=== PATIENT | female | born 1995 | race Hispanic/Latino ===

== ENCOUNTER 2016-06-17 10:49 | Emergency (ER) | payer OTHER ==
[~2016-06-17] VITALS: Ht 177.8 cm; Wt 68.0 kg
--- NOTE | 2016-06-17 11:59 | REP ---
Acute abdominal series including PA chest and supine upright abdomen: There are no comparisons. PA chest: The lung mendoza are clear. Cardiac size is normal. The hector, mediastinum, bony thorax unremarkable. There is no free subdiaphragmatic air. There is a tiny 4 mm right upper lobe lung nodule of uncertain significance in the absence of prior studies to document stability. Therefore, chest CT might be considered to assist in differentiating vascular artifact from true lung nodule. Impression: 4 mm right upper lobe lung nodule as described. Otherwise, negative PA chest. There are no comparison studies to document stability, consider chest CT follow-up. Abdomen, supine and upright views: The bowel gas pattern is normal. There are no unusual calcifications. There is mild lumbar scoliosis convex right. 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 The skeletal structures and soft tissues are otherwise unremarkable. Signed by Jass Barrientos MD 06/17/2016 11:51 A
[2016-06-17 13:14] VITALS: BP 119/58
--- NOTE | 2016-06-17 22:30 | ED PDOC ---
Post-Departure Follow-Up certified letter sent to pt re formal report of abdl series. needs fu Rachael Ozuna MD Jun 17, 2016 22:29
== END 2016-06-17 13:20 | disposition home or self-care (01) ==
LOC: EDBD 10:49 → M ED 11:35
DX: K59.00 Constipation, unspecified (principal)

== ENCOUNTER 2017-01-08 14:28 | Emergency (ER) | payer OTHER ==
[~2017-01-08] VITALS: Ht 177.8 cm; Wt 68.2 kg
[2017-01-08 14:35] VITALS: BP 129/67
[2017-01-08] MEDS ORDERED: NS 1,000 ML IV ONE (14:45)
[2017-01-08 15:10] LABS: BASO % 0.2 % (0.0-1.0); IMMATURE GRANULOCYTE % 0.3 % (0-0); LYMPH # 0.8 10^3/uL (1.5-6.5); LYMPH % 6.3 % (24.0-44.0); MEAN CORPUSCULAR HEMOGLOBIN 30.3 pg (27.0-33.0); MEAN CORPUSCULAR HGB CONC 34.1 g/dl (32.0-36.5); MEAN CORPUSCULAR VOLUME 88.8 fl (80.0-96.0); MONO # 0.4 10^3/uL (0.0-0.8); NEUTROPHILS # 11.3 10^3/uL (1.8-7.7); NEUTROPHILS % 90.2 % (36.0-66.0); PLATELET COUNT, AUTOMATED 201 10^3/uL (150-450); RED CELL DISTRIBUTION WIDTH 11.9 % (11.5-14.5); WHITE BLOOD COUNT 12.5 10^3/uL (4.0-10.0)
[2017-01-08 15:32] LABS: CONTROL LINE HCG INT CTR LINE PRESENT
[2017-01-08 15:47] LABS: ALBUMIN 4.3 GM/DL (3.2-5.2); ALBUMIN/GLOBULIN RATIO 1.26 (1.00-1.93); ALKALINE PHOSPHATASE 67 U/L (45-117); ALT/SGPT 15 U/L (12-78); ANION GAP 6 MEQ/L (8-16); AST/SGOT 11 U/L (7-37); BILIRUBIN,DIRECT 0.2 MG/DL (0.0-0.2); BLOOD UREA NITROGEN 13 MG/DL (7-18); CALCIUM LEVEL 9.3 MG/DL (8.5-10.1); CARBON DIOXIDE LEVEL 28 MEQ/L (21-32); CHLORIDE LEVEL 109 MEQ/L (98-107); CREATININE FOR GFR 0.89 MG/DL (0.55-1.02); GLOMERULAR FILTRATION RATE > 60.0 (>60); GLUCOSE, FASTING 98 MG/DL (70-105); POTASSIUM SERUM 3.7 MEQ/L (3.5-5.1); SODIUM LEVEL 143 MEQ/L (136-145); TOTAL PROTEIN 7.7 GM/DL (6.4-8.2)
== END 2017-01-08 16:24 | disposition left against medical advice (07) ==
LOC: M ED 14:28 → EDBD 14:28 → M ED 16:24
DX: R53.1 Weakness (principal)

== ENCOUNTER 2017-08-09 15:14 | Emergency (ER) | payer OTHER ==
[2017-08-09 16:06] LABS: BASO % 0.2 % (0.0-1.0); EOS # 0.1 10^3/uL (0.0-0.50); EOS % 0.8 % (0.0-3.0); HEMATOCRIT 34.6 % (36.0-47.0); HEMOGLOBIN 12.3 g/dl (12.0-15.5); IMMATURE GRANULOCYTE % 0.4 % (0-3.0); LYMPH # 1.3 10^3/uL (1.5-6.5); LYMPH % 13.2 % (24.0-44.0); MEAN CORPUSCULAR HEMOGLOBIN 31.6 pg (27.0-33.0); MEAN CORPUSCULAR HGB CONC 35.5 g/dl (32.0-36.5); MEAN CORPUSCULAR VOLUME 88.9 fl (80.0-96.0); MONO # 0.4 10^3/uL (0.0-0.8); MONO % 4.6 % (0.0-5.0); NEUTROPHILS # 7.8 10^3/uL (1.8-7.7); NEUTROPHILS % 80.8 % (36.0-66.0); PLATELET COUNT, AUTOMATED 186 10^3/uL (150-450); RED BLOOD COUNT 3.89 10^6/uL (4.00-5.40); RED CELL DISTRIBUTION WIDTH 11.7 % (11.5-14.5); WHITE BLOOD COUNT 9.6 10^3/uL (4.0-10.0)
[2017-08-09 16:30] LABS: CONTROL LINE HCG INT CTR LINE PRESENT; HCG, SERUM QUALITATIVE NEGATIVE (NEGATIVE)
[2017-08-09 16:58] LABS: ALBUMIN 3.5 GM/DL (3.2-5.2); ALBUMIN/GLOBULIN RATIO 1.21 (1.00-1.93); ALKALINE PHOSPHATASE 47 U/L (45-117); ALT/SGPT 12 U/L (12-78); ANION GAP 7 MEQ/L (8-16); AST/SGOT 9 U/L (7-37); BILIRUBIN,DIRECT 0.2 MG/DL (0.0-0.2); BLOOD UREA NITROGEN 9 MG/DL (7-18); CALCIUM LEVEL 8.3 MG/DL (8.5-10.1); CARBON DIOXIDE LEVEL 25 MEQ/L (21-32); CHLORIDE LEVEL 109 MEQ/L (98-107); GLOMERULAR FILTRATION RATE > 60.0 (>60); GLUCOSE, FASTING 89 MG/DL (70-100); LIPASE 144 U/L (73-393); POTASSIUM SERUM 4.1 MEQ/L (3.5-5.1); SODIUM LEVEL 141 MEQ/L (136-145); TOTAL PROTEIN 6.4 GM/DL (6.4-8.2)
[2017-08-09] MEDS: PANTOPRAZOLE 40MG INJ (PROTONIX) (C9113) IV (17:14)
[2017-08-09] MEDS: NS 1,000 ML IV (17:14)
[2017-08-09] MEDS: ONDANSETRON 4MG/2ML VIAL (J2405) IV (17:14)
== END 2017-08-09 17:49 | disposition home or self-care (01) ==
LOC: M ED 15:14
DX: R10.9 Unspecified abdominal pain (principal); R11.2 Nausea with vomiting, unspecified; R19.7 Diarrhea, unspecified
CPT/HCPCS: C9113

== ENCOUNTER 2017-08-15 10:43 | Emergency (ER) | payer OTHER ==
[2017-08-15 11:32] LABS: BASO % 0.3 % (0.0-1.0); EOS % 0.5 % (0.0-3.0); HEMATOCRIT 36.2 % (36.0-47.0); HEMOGLOBIN 12.8 g/dl (12.0-15.5); IMMATURE GRANULOCYTE % 0.3 % (0-3.0); LYMPH # 1.5 10^3/uL (1.5-6.5); LYMPH % 17.3 % (24.0-44.0); MEAN CORPUSCULAR HEMOGLOBIN 31.5 pg (27.0-33.0); MEAN CORPUSCULAR HGB CONC 35.4 g/dl (32.0-36.5); MEAN CORPUSCULAR VOLUME 89.2 fl (80.0-96.0); MONO # 0.5 10^3/uL (0.0-0.8); MONO % 5.7 % (0.0-5.0); NEUTROPHILS # 6.7 10^3/uL (1.8-7.7); NEUTROPHILS % 75.9 % (36.0-66.0); PLATELET COUNT, AUTOMATED 201 10^3/uL (150-450); RED BLOOD COUNT 4.06 10^6/uL (4.00-5.40); RED CELL DISTRIBUTION WIDTH 11.9 % (11.5-14.5); WHITE BLOOD COUNT 8.8 10^3/uL (4.0-10.0)
[2017-08-15 11:38] LABS: KETONE, URINE AUTO RFX NEGATIVE (NEGATIVE); LEUKOCYTE ESTERASE UR AUTO RFX NEGATIVE (NEGATIVE); NITRITE, URINE AUTO RFX NEGATIVE (NEGATIVE); RBC, URINE AUTO RFX 1 /HPF (0-3); SPECIFIC GRAVITY UR AUTO RFX 1.003 (1.002-1.035); SQUAM EPITHELIAL CELL UR AURFX 1 /HPF (0-6); WBC, URINE AUTO RFX 0 /HPF (0-3)
[2017-08-15 12:22] LABS: ANION GAP 9 MEQ/L (8-16); BLOOD UREA NITROGEN 11 MG/DL (7-18); CALCIUM LEVEL 8.8 MG/DL (8.5-10.1); CARBON DIOXIDE LEVEL 25 MEQ/L (21-32); CHLORIDE LEVEL 107 MEQ/L (98-107); CREATININE FOR GFR 0.74 MG/DL (0.55-1.30); GLOMERULAR FILTRATION RATE > 60.0 (>60); GLUCOSE, FASTING 65 MG/DL (70-100); HCG, SERUM QUANTITATIVE 58753 MIU/ML; POTASSIUM SERUM 4.1 MEQ/L (3.5-5.1); SODIUM LEVEL 141 MEQ/L (136-145)
== END 2017-08-15 15:04 | disposition home or self-care (01) ==
LOC: M ED 10:43
DX: O20.8 Other hemorrhage in early pregnancy (principal); Z3A.01 Less than 8 weeks gestation of pregnancy; Z79.899 Other long term (current) drug therapy
CPT/HCPCS: 76801

== ENCOUNTER 2017-12-09 15:21 | Emergency (ER) | payer OTHER ==
[2017-12-09 16:31] LABS: INR 0.99; PROTHROMBIN TIME 13.2 SECONDS (12.1-14.4)
[2017-12-09 16:32] LABS: PARTIAL THROMBOPLASTIN TIME 24.6 SECONDS (25.4-37.6)
[2017-12-09 16:50] LABS: ALBUMIN 2.9 GM/DL (3.2-5.2); ALBUMIN/GLOBULIN RATIO 0.81 (1.00-1.93); ALKALINE PHOSPHATASE 61 U/L (45-117); ALT/SGPT 24 U/L (12-78); ANION GAP 8 MEQ/L (8-16); AST/SGOT 14 U/L (7-37); BILIRUBIN,DIRECT < 0.1 MG/DL (0.0-0.2); BILIRUBIN,TOTAL 0.4 MG/DL (0.2-1.0); BLOOD UREA NITROGEN 9 MG/DL (7-18); CALCIUM LEVEL 8.2 MG/DL (8.5-10.1); CARBON DIOXIDE LEVEL 24 MEQ/L (21-32); CHLORIDE LEVEL 109 MEQ/L (98-107); CK-MB VALUE MASS < 1.0 NG/ML (<3.6); CPK CREATINE PHOSPHOKINASE 47 U/L (26-192); CREATININE FOR GFR 0.62 MG/DL (0.55-1.30); FREE T4 0.82 NG/DL (0.76-1.46); GLOMERULAR FILTRATION RATE > 60.0 (>60); GLUCOSE, FASTING 80 MG/DL (70-100); LIPASE 149 U/L (73-393); MB/CK RELATIVE INDEX 2.13 (< OR =4); SODIUM LEVEL 141 MEQ/L (136-145); THYROID STIMULATING HORMONE 0.939 uIU/ML (0.358-3.740); TOTAL PROTEIN 6.5 GM/DL (6.4-8.2); TROPONIN I < 0.02 NG/ML (< 0.10)
[2017-12-09] MEDS ORDERED: ISOVUE-370 76% 100ML VIAL (Q9967) As Ordered (17:26)
[2017-12-09 17:36] LABS: BASO % 0.3 % (0.0-1.0); EOS # 0.1 10^3/uL (0.0-0.50); EOS % 1.1 % (0.0-3.0); HEMATOCRIT 34.8 % (36.0-47.0); HEMOGLOBIN 11.9 g/dl (12.0-15.5); IMMATURE GRANULOCYTE % 1.5 % (0-3.0); LYMPH # 1.3 10^3/uL (1.5-6.5); LYMPH % 14.2 % (24.0-44.0); MEAN CORPUSCULAR HEMOGLOBIN 31.9 pg (27.0-33.0); MEAN CORPUSCULAR HGB CONC 34.2 g/dl (32.0-36.5); MEAN CORPUSCULAR VOLUME 93.3 fl (80.0-96.0); MONO # 0.7 10^3/uL (0.0-0.8); MONO % 7.8 % (0.0-5.0); NEUTROPHILS % 75.1 % (36.0-66.0); PLATELET COUNT, AUTOMATED 190 10^3/uL (150-450); RED BLOOD COUNT 3.73 10^6/uL (4.00-5.40); RED CELL DISTRIBUTION WIDTH 12.3 % (11.5-14.5); WHITE BLOOD COUNT 9.3 10^3/uL (4.0-10.0)
== END 2017-12-09 19:04 | disposition home or self-care (01) ==
LOC: M ED 15:21
DX: O99.89 Other specified diseases and conditions complicating pregnancy, childbirth and the puerperium (principal); R07.9 Chest pain, unspecified; R00.2 Palpitations; Z3A.24 24 weeks gestation of pregnancy
CPT/HCPCS: Q9967

== ENCOUNTER 2017-12-31 15:14 | Outpatient (CLI) | payer OTHER ==
[2017-12-31 17:30] LABS: HEMATOCRIT 32.6 % (36.0-47.0); HEMOGLOBIN 11.1 g/dl (12.0-15.5); MEAN CORPUSCULAR HEMOGLOBIN 31.5 pg (27.0-33.0); MEAN CORPUSCULAR VOLUME 92.6 fl (80.0-96.0); PLATELET COUNT, AUTOMATED 190 10^3/uL (150-450); RED BLOOD COUNT 3.52 10^6/uL (4.00-5.40); RED CELL DISTRIBUTION WIDTH 12.5 % (11.5-14.5); WHITE BLOOD COUNT 12.4 10^3/uL (4.0-10.0)
[2017-12-31 17:44] LABS: TOTAL PROTEIN,RANDOM URINE 8.1 MG/DL (0.0-12.0)
[2017-12-31 17:55] LABS: ALT/SGPT 25 U/L (12-78); AST/SGOT 19 U/L (7-37); BILIRUBIN,TOTAL 0.3 MG/DL (0.2-1.0); CREATININE FOR GFR 0.71 MG/DL (0.55-1.30); GLOMERULAR FILTRATION RATE > 60.0 (>60); LDH LACTATE DEHYDROGENASE 139 U/L (84-246); URIC ACID 2.8 MG/DL (2.6-6.0)
== END 2017-12-31 18:00 | disposition home or self-care (01) ==
LOC: M LDO 15:14
DX: O99.89 Other specified diseases and conditions complicating pregnancy, childbirth and the puerperium (principal); R51 Headache; R03.0 Elevated blood-pressure reading, without diagnosis of hypertension; Z3A.27 27 weeks gestation of pregnancy
CPT/HCPCS: 59025

== ENCOUNTER 2018-01-08 22:28 | Emergency (ER) | payer OTHER ==
[2018-01-08 23:42] LABS: HEMATOCRIT 28.8 % (36.0-47.0); HEMOGLOBIN 9.8 g/dl (12.0-15.5); MEAN CORPUSCULAR VOLUME 91.1 fl (80.0-96.0); PLATELET COUNT, AUTOMATED 169 10^3/uL (150-450); RED BLOOD COUNT 3.16 10^6/uL (4.00-5.40); RED CELL DISTRIBUTION WIDTH 12.3 % (11.5-14.5); WHITE BLOOD COUNT 10.7 10^3/uL (4.0-10.0)
[2018-01-09 00:21] LABS: ANION GAP 7 MEQ/L (8-16); BLOOD UREA NITROGEN 9 MG/DL (7-18); CALCIUM LEVEL 8.4 MG/DL (8.5-10.1); CARBON DIOXIDE LEVEL 24 MEQ/L (21-32); CHLORIDE LEVEL 110 MEQ/L (98-107); GLOMERULAR FILTRATION RATE > 60.0 (>60); GLUCOSE, FASTING 107 MG/DL (70-100); MAGNESIUM LEVEL 1.9 MG/DL (1.8-2.4); POTASSIUM SERUM 3.8 MEQ/L (3.5-5.1); SODIUM LEVEL 141 MEQ/L (136-145)
== END 2018-01-09 01:07 | disposition home or self-care (01) ==
LOC: M ED 22:28
DX: O99.89 Other specified diseases and conditions complicating pregnancy, childbirth and the puerperium (principal); R00.2 Palpitations; Z3A.28 28 weeks gestation of pregnancy
CPT/HCPCS: 93005

== ENCOUNTER → 2018-01-09 | Outpatient (CLI) | payer OTHER | LOC: M EKG 15:30 | DX: R00.2 Palpitations (principal); O26.93 Pregnancy related conditions, unspecified, third trimester ==

== ENCOUNTER 2018-03-08 19:56 | Outpatient (CLI) | payer OTHER ==
[~2018-03-08] VITALS: Ht 177.8 cm; Wt 88.5 kg
[~2018-03-08 19:56] MED LIST: NAPR1TAB41 PO; OMEP40CA2 PO; RIGHTAB2 PO; ZOFR4TAB14 PO; [UNRECOGNIZED DRUG - CODE] XX
[2018-03-08 20:20] VITALS: BP 120/72
[2018-03-08] MEDS ORDERED: MAPA500T2 PO (20:28)
--- NOTE | 2018-03-08 21:20 | IPNPDOC ---
Text Note Date of Service The patient was seen on 03/08/18. NOTE [id number] @ 191 23 yo G1 @ 37+1 by LMP([id number]) and 7+5 wk US on [id number] presents ambulatory to L&D Triage with concerns of LOF. Denies DFM, CTXs, and vaginal bleeding. FOB and great grandmother at bedside. Reports she noticed loss of mucous on and then states tonight she woke up with a damp spot under her. Denies LOF fluid since that time. She arrived without a pad on and dry panties. S: Resting in triage bed in semi-fowlers. Denies pain or discomfort. Denies LOF since 1899 O: VS: WNL, afebrile FHR: 140, moderate variability, + accels, no decels CTXs: one CTX nted during tracing, did not palpate CTX, resting tone palpated as soft Nitrazine-negative Pooling- negative Valsalva- negative Ferning- negative Limited OB US- SIUP, + CA, + FM, LINDEN- 9.75, VTX SVE- closed/thick/high, firm/mid/vtx A: 23 yo G1 @ 37+1 with reactive NST, no indication of SROM P: Discharge to home with strict return precautions. Spent 10 min counseling on strict return precautions to include: DFM, LOF, CTXs, and vaginal bleeding. VS,Fishbone, I+O VS, Fishbone, I+O Vital Signs Date Time Temp Pulse Resp B/P (MAP) Pulse Ox O2 Delivery O2 Flow Rate FiO2 03/08/18 20:20 97.7 88 18 120/72 (88) MARTY MILLER CNM Mar 08, 2018 21:20
== END 2018-03-08 21:39 | disposition home or self-care (01) ==
LOC: M LDO 19:56
PROVIDERS: ATTEND Midwife
DX: O26.893 Other specified pregnancy related conditions, third trimester (principal); Z3A.37 37 weeks gestation of pregnancy
CPT/HCPCS: 59025; 76815; G0378; G0463

== ENCOUNTER 2018-03-16 02:34 | Outpatient (CLI) | payer OTHER ==
[~2018-03-16] VITALS: Ht 175.3 cm; Wt 90.0 kg
[~2018-03-16 02:34] MED LIST changes: +MAPA500T2 PO
[2018-03-16 03:02] VITALS: BP 126/73
[2018-03-16 03:17] VITALS: BP 144/68
[2018-03-16 03:24] LABS: BASO % 0.2 % (0.0-1.0); EOS # 0.1 10^3/uL (0.0-0.50); EOS % 1.2 % (0.0-3.0); HEMATOCRIT 30.9 % (36.0-47.0); HEMOGLOBIN 10.1 g/dl (12.0-15.5); LYMPH # 1.6 10^3/uL (1.5-6.5); LYMPH % 19.2 % (24.0-44.0); MEAN CORPUSCULAR HEMOGLOBIN 28.3 pg (27.0-33.0); MEAN CORPUSCULAR HGB CONC 32.7 g/dl (32.0-36.5); MEAN CORPUSCULAR VOLUME 86.6 fl (80.0-96.0); MONO # 0.7 10^3/uL (0.0-0.8); MONO % 8.4 % (0.0-5.0); NEUTROPHILS # 5.8 10^3/uL (1.8-7.7); NEUTROPHILS % 70.2 % (36.0-66.0); PLATELET COUNT, AUTOMATED 174 10^3/uL (150-450); RED BLOOD COUNT 3.57 10^6/uL (4.00-5.40); WHITE BLOOD COUNT 8.2 10^3/uL (4.0-10.0)
[2018-03-16 03:28] LABS: ALBUMIN 2.6 GM/DL (3.2-5.2); ALT/SGPT 17 U/L (12-78); BILIRUBIN,TOTAL 0.4 MG/DL (0.2-1.0); BLOOD UREA NITROGEN 6 MG/DL (7-18); CALCIUM LEVEL 8.3 MG/DL (8.5-10.1); CARBON DIOXIDE LEVEL 21 MEQ/L (21-32); CHLORIDE LEVEL 110 MEQ/L (98-107); CREATININE FOR GFR 0.59 MG/DL (0.55-1.30); GLOMERULAR FILTRATION RATE > 60.0 (>60); GLUCOSE, FASTING 115 MG/DL (70-100); POTASSIUM SERUM 4.7 MEQ/L (3.5-5.1); SODIUM LEVEL 140 MEQ/L (136-145); TOTAL PROTEIN 6.3 GM/DL (6.4-8.2)
[2018-03-16 03:32] VITALS: BP 130/67
[2018-03-16 03:48] VITALS: BP 127/63
[2018-03-16 03:56] LABS: AMPHETAMINES URINE REFLEX NEGATIVE (NEGATIVE); BARBITURATES URINE REFLEX NEGATIVE (NEGATIVE); BENZODIAZEPINES URINE REFLEX NEGATIVE (NEGATIVE); CANNABINOIDS URINE REFLEX NEGATIVE (NEGATIVE); COCAINE METABOLITE URINE REFLE NEGATIVE (NEGATIVE); METHADONE URINE REFLEX NEGATIVE (NEGATIVE); OPIATES URINE REFLEX NEGATIVE (NEGATIVE); PHENCYCLIDINE URINE REFLEX NEGATIVE (NEGATIVE)
[2018-03-16 04:12] LABS: TROPONIN I < 0.02 NG/ML (< 0.10)
--- NOTE | 2018-03-16 04:15 | IPNPDOC ---
Text Note Date of Service The patient was seen on 03/16/18. NOTE Outpatient observation note Pia is a 23 yo at 38+1 weeks gestation who presented to L&D with the complaint of weakness, chest pressure/tightness, and feeling "out of it." She was brought in and was extremely weak, and was unable to walk or appropriately answer questions initially. She had slurred speech. Her answered questions for me and provided the initial history. They were watching TV and he reports his reported feeling very anxious and her leg started shaking. She then became very weak and had slurred speech so he brought her to the ER, who sent her up to L&D. Pia was able to answer some questions from me eventually. She denies any pain. She also denies any vaginal bleeding, leakage of fluid, or contractions. She endorses movement. OBHX: GYNHx: Denies PMHX: Heart palpitations. Had normal Holter monitor study in . Had negative CT-PA in that was done for chest pain. PSHX: Denies Meds: PNVs All: None Social: Denies tobacco, rec drugs, or etoh use. Lives at home with FamHx: Non contributory Exam: Vitals - HR 90s-110s, Normotensive (one isolated systolic BP of 144, all other p ressures normal), afebrile, PO2 >98% on RA General - Awake and oriented, but initially sluggish to answer questions. Neuro - CN II-XII intact. No focal upper extremity or lower extremity defects. Muscle strength 5/5 in upper and lower extremities Abdomen - Soft, gravid, no fundal tenderness FHR - BL 130, moderate variability, +accels, no decels, Cat I tracing throughout Labs: CBC: 8.2>10.1/30.9<174 BMP: 140/4.7--110/21--6/0.59<115 AST/ALT - UDS - Negative Pia was given an IV fluid bolus and her symptoms improved significantly. I consulted the hospitalist service ( Saturday) due to her mental status changes in conjunction with her chest pressure / weakness. His initial impression is that of anxiety, and does not recommend any imaging. Plan for EKG, TSH, blood culture, and troponins per his recommendation. No obstetric complaints. She had one isolated elevated systolic BP of 144, otherwise all normal. Toxemia labs were negative. Of note, she did not complete gestational diabetes screening in this , as she was away on emergency leave. Will observe throughout the rest of the night and the morning. Will cycle vital signs and do intermittent monitoring. Should all bloodwork remain normal, may consider discharge home later today if appropriate. All patient questions answered. Kassie Gama DO VS,Reji, I+O VS, Reji, I+O Laboratory Tests 03/16/18 02:50 Calcium Level 8.3 L, Aspartate Amino Transf (AST/SGOT) 31, Alanine Aminotransferase (ALT/SGPT) 17, Alkaline Phosphatase 184 H, Total Bilirubin 0.4, Total Protein 6.3 L, Albumin 2.6 L 03/16/18 03:08 Red Blood Count 3.57 L, Mean Corpuscular Volume 86.6, Mean Corpuscular Hemoglobin 28.3, Mean Corpuscular Hemoglobin Concent 32.7, Red Cell Distribution Width 13.8, Neutrophils (%) (Auto) 70.2 H, Lymphocytes (%) (Auto) 19.2 L, Monocytes (%) (Auto) 8.4 H, Eosinophils (%) (Auto) 1.2, Basophils (%) (Auto) 0.2, Neutrophils # (Auto) 5.8, Lymphocytes # (Auto) 1.6, Monocytes # (Auto) 0.7, Eosinophils # (Auto) 0.1, Basophils # (Auto) 0.0 KASSIE GAMA DO Mar 16, 2018 04:15
[2018-03-16 06:08] LABS: CREATININE,RANDOM URINE 54.4 MG/DL; TOTAL PROTEIN,RANDOM URINE 17.6 MG/DL (0.0-12.0)
[2018-03-16 07:40] VITALS: BP 106/56
--- NOTE | 2018-03-16 08:36 | IPNPDOC ---
Text Note Date of Service The patient was seen on 03/16/18. NOTE Patient seen this AM. Pia reports feeling much better and back to normal. She denies any current chest pain, SOB, palpitations, or weakness. She also denies headaches, RUQ pain, visual changes, vaginal bleeding, leakage of fluid, or contractions. She endorses movement. She has been able to ambulate to the restroom without issues. Vitals - VSS, normotensive, afebrile, non tachycardic General - AAOX3, sitting up in bed, NAD Abdomen - Gravid uterus, no fundal tenderness Extremities - No edema FHR - Reactive NST at ~0730, no decels, no ctx new Labs TSH - 1.4 pending 0900 troponin pr/cr - 0.32 Pia is doing well and is much improved. If 0900 troponin is normal will likely discharge to home. Blood pressures have been normal. Note made of pr/cr of 0.32, though because she only had a single isolated elevated BP, she does not necessarily rule in for pre e. She has no other symptoms and otherwise normal labs. Will have patient come into the OBGYN clinic on Saturday for a BP check. If pressure is elevated, she would at least rule in for GHTN and I would recommend IOL. Patient to return to care sooner for return of symptoms, bleeding, leakage of fluid, contractions, decreased movement, or any other urgent concerns. All patient questions answered. Kassie Gama, DO VS,Reji, I+O VS, Reji, I+O Laboratory Tests 03/16/18 02:50 Calcium Level 8.3 L, Aspartate Amino Transf (AST/SGOT) 31, Alanine Aminotransferase (ALT/SGPT) 17, Alkaline Phosphatase 184 H, Total Bilirubin 0.4, Total Protein 6.3 L, Albumin 2.6 L 03/16/18 03:08 Red Blood Count 3.57 L, Mean Corpuscular Volume 86.6, Mean Corpuscular Hemoglobin 28.3, Mean Corpuscular Hemoglobin Concent 32.7, Red Cell Distribution Width 13.8, Neutrophils (%) (Auto) 70.2 H, Lymphocytes (%) (Auto) 19.2 L, [place] cytes (%) (Auto) 8.4 H, Eosinophils (%) (Auto) 1.2, Basophils (%) (Auto) 0.2, Neutrophils # (Auto) 5.8, Lymphocytes # (Auto) 1.6, Monocytes # (Auto) 0.7, Eosinophils # (Auto) 0.1, Basophils # (Auto) 0.0 Vital Signs Date Time Temp Pulse Resp B/P (MAP) Pulse Ox O2 Delivery O2 Flow Rate FiO2 03/16/18 03:48 99.1 90 127/63 (84) KASSIE GAMA DO Mar 16, 2018 08:36
--- NOTE | 2018-03-16 11:03 | IPNPDOC ---
Text Note Date of Service The patient was seen on 03/16/18. NOTE Dr. Sherwood with the hospitalist service evaluated Ms. Mayfield this morning. EKG appears similar to her EKG in December and he is not concerned for any acute abnormalities. A cardiac echo was recommended, along with a physical therapy consultation due to her presenting complaint of weakness. A head MRI was also discussed though she refused to have this done. Pia remains stable and status is reassuring. Likely will discharge home this afternoon if echocardiogram is normal. Sunil Preciado DO VS,Reji, I+O VS, [place], I+O Laboratory Tests 03/16/18 02:50 Calcium Level 8.3 L, Aspartate Amino Transf (AST/SGOT) 31, Alanine Aminotransferase (ALT/SGPT) 17, Alkaline Phosphatase 184 H, Total Bilirubin 0.4, Total Protein 6.3 L, Albumin 2.6 L 03/16/18 03:08 Red Blood Count 3.57 L, Mean Corpuscular Volume 86.6, Mean Corpuscular Hemoglobin 28.3, Mean Corpuscular Hemoglobin Concent 32.7, Red Cell Distribution Width 13.8, Neutrophils (%) (Auto) 70.2 H, Lymphocytes (%) (Auto) 19.2 L, [place] cytes (%) (Auto) 8.4 H, Eosinophils (%) (Auto) 1.2, Basophils (%) (Auto) 0.2, Neutrophils # (Auto) 5.8, Lymphocytes # (Auto) 1.6, Monocytes # (Auto) 0.7, Eosinophils # (Auto) 0.1, Basophils # (Auto) 0.0 Vital Signs Date Time Temp Pulse Resp B/P (MAP) Pulse Ox O2 Delivery O2 Flow Rate FiO2 03/16/18 07:40 98.0 88 106/56 (73) SUNIL PRECIADO DO Mar 16, 2018 11:03
[2018-03-16 11:38] VITALS: BP 109/56
--- NOTE | 2018-03-16 12:59 | ECGEPIP ---
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
--- NOTE | 2018-03-16 13:50 | IPNPDOC ---
Text Note Date of Service The patient was seen on 03/16/18. NOTE Pia reports feeling well. She still feels slightly tired, but otherwise normal. she is ambulating without issues and denies any dizziness, SOB, chest pain, or syncopal symptoms. Echocardiogram was performed. Read is pending until likely Saturday or Saturday due to route contractor availability. Vitals signs remain stable, status remains reassuring. She has mild anemia, and her symptoms may at least be partially explained by this. Will start BID ferrous sulfate, though this is unlikely to significantly increase her H/H before delivery. She is stable for discharge home, and this is what she desires. She will return to care on saturday in the OB clinic for a BP check. She is to return to care sooner for any headaches, RUQ pain, visual changes, bleeding, leakage of fluid, contractions, decreased movement, return of symptoms that she had upon presentation, or any urgent concerns. All questions answered. Kassie Gama DO VS,Reji, I+O VS, Reji, I+O Laboratory Tests 03/16/18 02:50 Calcium Level 8.3 L, Aspartate Amino Transf (AST/SGOT) 31, Alanine Aminotransferase (ALT/SGPT) 17, Alkaline Phosphatase 184 H, Total Bilirubin 0.4, Total Protein 6.3 L, Albumin 2.6 L 03/16/18 03:08 Red Blood Count 3.57 L, Mean Corpuscular Volume 86.6, Mean Corpuscular Hemoglobin 28.3, Mean Corpuscular Hemoglobin Concent 32.7, Red Cell Distribution Width 13.8, Neutrophils (%) (Auto) 70.2 H, Lymphocytes (%) (Auto) 19.2 L, Monocytes (%) (Auto) 8.4 H, Eosinophils (%) (Auto) 1.2, Basophils (%) (Auto) 0.2, Neutrophils # (Auto) 5.8, Lymphocytes # (Auto) 1.6, Monocytes # (Auto) 0.7, Eosinophils # (Auto) 0.1, Basophils # (Auto) 0.0 Vital Signs Date Time Temp Pulse Resp B/P (MAP) Pulse Ox O2 Delivery O2 Flow Rate FiO2 03/16/18 11:38 98.1 86 109/56 (73) KASSIE GAMA DO Mar 16, 2018 13:50
--- NOTE | 2018-03-16 14:37 | IPNPDOC ---
Text Note Date of Service The patient was seen on 03/16/18. NOTE Subjective: Patient states that she had episodes of crying and anxious over the past few days, however yesterday she had generalized weakness to the point where she could not ambulate. She also notes that she had slurred speech. She denied any chest pain. Had palpitations earlier. Notes that she had been following up with Dr. Santana, had a Holter monitor, and missed her appointment recently and was rescheduled. No shortness of breath. She has had decreased appetite over the past few days. States she felt better when she received IV fluids. Objective: Vitals: (see below) General: No acute distress, laying comfortably in bed. HEENT: Moist mucous membranes. Neck: No JVD or lymphadenopathy Cardiac: RRR, No murmurs Pulm: Clear to auscultation b/l. No wheezing, rhonchi Abd: NT/ND + BS Ext: No edema or cyanosis Neuro: Strength 5/5 BUE and BLE. CN 2-12 intact. F to N intact Negative pronator drift. Alert and oriented 3. Labs (see below) Assessment/Plan 1. Palpitations- EKG with normal sinus rhythm, no acute changes from her prior. Echocardiogram pending. Patient states she would like to follow-up with her presales engineer for Holter monitor results. I have recommended close outpatient follow-up with Dr. Santana. 2. Slurred speech- Resolved. No focal deficits on exam. I have recommended an MRI of the brain, however the patient refused. 3. Generalized weakness-improved patient has no focal deficits on exam. Physical therapy has been ordered 4. Iron deficiency anemia- has been started on iron sulfates by primary team 5. , 38+1 week - management per Dr. Gama DVT prophy: As per Dr. Gama Patient will need close outpatient follow-up with her primary care physician as well as presales engineer in 1-2 weeks. Patient is to return to the ED if her symptoms worsen. VS,Fishbone, I+O VS, Fishbone, I+O Laboratory Tests 03/16/18 02:50 Calcium Level 8.3 L, Aspartate Amino Transf (AST/SGOT) 31, Alanine Aminotransfer ase (ALT/SGPT) 17, Alkaline Phosphatase 184 H, Total Bilirubin 0.4, Total Protein 6.3 L, Albumin 2.6 L 03/16/18 03:08 Red Blood Count 3.57 L, Mean Corpuscular Volume 86.6, Mean Corpuscular Hemoglobin 28.3, Mean Corpuscular Hemoglobin Concent 32.7, Red Cell Distribution Width 13.8, Neutrophils (%) (Auto) 70.2 H, Lymphocytes (%) (Auto) 19.2 L, Monocytes (%) (Auto) 8.4 H, Eosinophils (%) (Auto) 1.2, Basophils (%) (Auto) 0.2, Neutrophils # (Auto) 5.8, Lymphocytes # (Auto) 1.6, Monocytes # (Auto) 0.7, Eosinophils # (Auto) 0.1, Basophils # (Auto) 0.0 Vital Signs Date Time Temp Pulse Resp B/P (MAP) Pulse Ox O2 Delivery O2 Flow Rate FiO2 03/16/18 11:38 98.1 86 109/56 (73) RAJENDRA SAMS MD Mar 16, 2018 14:37
--- NOTE | 2018-03-16 17:27 | CR ---
DATE OF CONSULTATION: 03/16/2018 CONSULT FOR TOWER WATCHMAN SERVICE CHIEF COMPLAINT: Patient presents with a variety of seemingly unrelated complaints. She felt generalized weakness, difficulty initiating and maintaining sleep cycle and she has a remote history of palpitations as well. HISTORY OF PRESENT ILLNESS: The patient is a 23-year-old, 38 week gravid female with significant past medical history of remote migraines, which she states is typically under control, rarely has attacks, uses Tylenol as needed. She also notably in the history has complaints of tachycardia over the past several months. She was seen by senior applications engineer, Dr. Santana, was fitted for a Holter monitor, which only showed isolated ventricular beats, brief episodes of tachycardia, maximal heart rate of 140, minimal episodes of bradycardia. She presents to the emergency room today and admitted to the obstetrical (OB) service with nonspecific complaints. Initially, patient states that she feels as though she suddenly arouses from trying to initiate her sleep cycle over the last week. She also complains of generalized weakness. She also describes some intermittent palpitations. She denies any coughing, fevers, chills, sick contacts, abdominal pain, bloody vaginal discharge, dysuria. She does have frequency; however, the patient is 38 weeks gravid. She does not have any diarrhea or constipation. PAST MEDICAL HISTORY: See history of present illness (HPI). PAST SURGICAL HISTORY: None. HOME MEDICATIONS: - Tylenol as needed for migraines - vitamins SOCIAL HISTORY: She denies tobacco, alcohol or illicit drug use. FAMILY HISTORY: Noncontributory. GYNECOLOGICAL HISTORY: The patient is G1, P0, 38 weeks gestation. VITAL SIGNS ON ADMISSION: Temperature 99.1, heart rate in the 110s, blood pressure 144/68, saturating at 99% on room air. PHYSICAL EXAMINATION: GENERAL: She is well-nourished, in no apparent distress. HEAD: Normocephalic, atraumatic. EYES: Extraocular movements are intact. Pupils equal, round, reactive to light. NECK: Supple. No jugular venous pressure (JVP). LUNGS: Clear to auscultation. No crackles, wheezes, rales or rhonchi. CARDIOVASCULAR: Regular rate and rhythm. Normal S1, S2. No murmurs, gallops or rubs. ABDOMEN: Gravid. Nontender. EXTREMITIES: No pitting edema or calf tenderness. SKIN: Appears to be intact. No rashes or lesions or breakdown. COMPLETE NEUROLOGICAL EXAM: She is alert and oriented times three. There are no focal deficits. Sensation and power intact to fine touch, is intact in the bilateral upper and lower extremities. Coordination is intact. Speech appears to be normal. There is no facial droop. LABS AND IMAGING COMPLETED: White count 8, hemoglobin and hematocrit (H and H) 10 and 30, platelet count 174. Electrolytes: Potassium within normal limits. BUN and creatinine 6 and 0.59. Fingersticks 110. Urinalysis is unremarkable. Urine toxicology is pending. No imaging was completed in the emergency room. ASSESSMENT AND PLAN: A 23-year-old, 38 week gravid female presenting with complaints of difficulty initiating sleep, intermittent palpitations, and feelings of generalized weakness. I believe most of this patient's symptoms is related to possible anxiety attacks, as she does describe other sympathetic symptoms, such as racing of her heart, dry mouth, sweaty palms, which last intermittently and associated with her palpitations. She does not appear toxic. Will continue to monitor. Please follow urine toxicology already sent. Will send one set of blood cultures and continue to follow. Will continue to monitor off antibiotics. Will sent a thyroid stimulating hormone (TSH). Patient is saturating well at 99% on room air. I do not believe that she has any thromboembolic disease. Will recycle her troponins. Will get a baseline EKG. Patient may benefit from intervention from psychologist/psychiatrist if she does request so, but for now, will continue to watch the patient, follow the blood cultures, follow the labs, follow the TSH, and continue to trend vital signs, as per floor protocol. If the patient does not appear infectious and does not appear to be in any acute distress, I believe that most of her symptoms are related to anxiety. The rest of the care as per obstetrics primary team. Thank you for allowing me to participate in the care of this patient. Medicine will continue to follow.
--- NOTE | 2018-03-17 08:24 | ECHO ---
DATE OF STUDY: REFERRING PHYSICIAN: Justin Bellamy MD INDICATION: Dyspnea. HEIGHT: 175 cm WEIGHT: 90 kg 2D MEASUREMENTS: Aortic annulus 2.0 cm Aortic root 2.6 cm Left atrium 3.2 cm Ventricular septum 0.875 cm Posterior wall 0.79 cm Left ventricle diastole 5.0 cm Left atrial volume index 25 DOPPLER MEASUREMENTS: Aortic valve velocity 152 cm/s LVOT velocity 110 cm/s LVOT VTI 22.0 cm Mitral E velocity 66.9 cm/s Mitral A velocity 58.7 cm/s Mitral deceleration time 195 ms Mild tricuspid regurgitation Estimated right ventricle systolic pressure 22 mmHg assuming a right atrial pressure of 5 mmHg Trace pulmonic regurgitation Pulmonary artery systolic pressure 24 mmHg MITRAL ANNULAR TISSUE DOPPLER: E prime septal 9.03 cm/s E prime lateral 12.2 cm/s DESCRIPTION: Rhythm was sinus. Image quality was good. No pericardial effusion. This was a 2D, M mode, color flow Doppler and pulse wave Doppler examination and included mitral annular tissue Doppler. CONCLUSIONS: 1. Normal echocardiogram Doppler. 2. Normal left ventricle internal dimensions and wall thickness. Normal regional LV wall motion and wall thickening. Normal LV systolic function. LVEF 60% by visual estimate. Normal LV diastolic function. 3. Suggestive of normal pulmonary artery systolic pressure.
== END 2018-03-16 13:55 | disposition home or self-care (01) ==
LOC: M LDO 02:34
PROVIDERS: ATTEND Obstetrics & Gynecology
DX: O26.893 Other specified pregnancy related conditions, third trimester (principal); R47.81 Slurred speech; R07.9 Chest pain, unspecified; R53.1 Weakness; O99.013 Anemia complicating pregnancy, third trimester; D50.9 Iron deficiency anemia, unspecified; Z3A.38 38 weeks gestation of pregnancy
CPT/HCPCS: 36415; 59025; 80053; 80307; 82570; 84156; 84443; 84484; 85025; 87040; 93005; 93306; G0378; G0463

== ENCOUNTER 2018-03-29 19:57 | Outpatient (CLI) | payer OTHER ==
[~2018-03-29] VITALS: Ht 177.8 cm; Wt 91.0 kg
--- NOTE | 2018-03-29 21:21 | IPNPDOC ---
Text Note Date of Service The patient was seen on 03/29/18. NOTE 23 yo at 40+0 weeks presented to L&D with the complaint of pelvic pressure and intermittent abdominal pain along with feeling less movement that usual. She reports the pressure and abdominal pain has been worsening throughout the day. She denies any bleeding or leakage of fluid. She reports feeling movement but not as much as usual. Chaperoned by L&D RN Vitals - VSS, afebrile, normotensive, non tachycardic General - AAOX3, sitting up in bed, NAD Abdomen - Gravid uterus, no fundal tenderness Cervix - 1-250/-3 FHR tracing - BL 135, moderate variability, +accels, no decels, Cat I tracing Bedside TAUS - LINDEN 7.3cm, +gross movement Patient not in labor. FHR Cat I and reassuring with +accels. LINDEN appropriate. She felt much movement in triage and was reassured. She has a follow up appointment scheduled for [id number]. Return to care sooner for bleeding, contractions, leakage of fluid, or decreased movement. All patient questions answered. DO ILANA Logan CHRISTOPHER J. DO Mar 29, 2018 21:21
== END 2018-03-29 22:00 | disposition home or self-care (01) ==
LOC: M LDO 19:57
PROVIDERS: ATTEND Obstetrics & Gynecology
DX: O36.8130 Decreased fetal movements, third trimester, not applicable or unspecified (principal); O47.1 False labor at or after 37 completed weeks of gestation; Z3A.40 40 weeks gestation of pregnancy
CPT/HCPCS: 59025; 76815; G0378; G0463

== ENCOUNTER 2018-04-03 01:10 | Inpatient (IN) | payer OTHER ==
[2018-04-03] VITALS (28 sets, daily range): BP systolic 107–143; BP diastolic 59–91
[~2018-04-03] VITALS: Ht 177.8 cm; Wt 92.8 kg
[2018-04-03] MEDS ORDERED: IRON27TA2 PO (01:34)
[2018-04-03 02:42] LABS: HEMATOCRIT 33.6 % (36.0-47.0); HEMOGLOBIN 10.8 g/dl (12.0-15.5); MEAN CORPUSCULAR HEMOGLOBIN 27.9 pg (27.0-33.0); MEAN CORPUSCULAR HGB CONC 32.1 g/dl (32.0-36.5); MEAN CORPUSCULAR VOLUME 86.8 fl (80.0-96.0); PLATELET COUNT, AUTOMATED 147 10^3/uL (150-450); RED BLOOD COUNT 3.87 10^6/uL (4.00-5.40); WHITE BLOOD COUNT 9.5 10^3/uL (4.0-10.0)
[2018-04-03] MEDS ORDERED: LACTATED RINGER'S 1000 ML IV ONE (06:15)
[2018-04-03] MEDS: LR 1,000 ML IV SCH ×2 (06:35→08:01)
[2018-04-03] MEDS ORDERED: OXYTOCIN 30 UNITS IN 0.9% NaCl 500ML IV BAG (J2590) As Ordered ONE (07:22)
[2018-04-03] MEDS ORDERED: FENTANYL 2MCG/ML ROPIVACAINE 0.2% IN 0.9% NACL 100ML IVBAG As Ordered ONE (07:22)
[2018-04-03] MEDS ORDERED: diphenhydrAMINE INJ 50MG/ML VIAL (J1200) IV PRN (08:30)
[2018-04-03] MEDS ORDERED: ONDANSETRON 4MG/2ML VIAL (J2405) IV PRN (08:30)
[2018-04-03] MEDS ORDERED: LACTATED RINGER'S 1000 ML IV PRN (08:30)
[2018-04-03] MEDS ORDERED: FENTANYL/ROPIVACAINE/NACL BAG 100 ML EPIDURAL SCH (08:30)
[2018-04-03] MEDS ORDERED: ePHEDrine SULFATE 25 MG/5 ML(5MG/ML) SYRINGE IV PRN (08:30)
[2018-04-03] MEDS ORDERED: EPIDURAL COMMENT XX SCH (08:30)
[2018-04-03] MEDS ORDERED: NALOXONE INJ 0.4 MG/1 ML VIAL (J2310) IV PRN (08:30)
[2018-04-03] MEDS ORDERED: REFRIGERATOR IV KEYS XX PRN (08:30)
[2018-04-03] MEDS ORDERED: EPIDURAL/PCA KEYS XX PRN (08:30)
--- NOTE | 2018-04-03 10:46 | IPNPDOC ---
Text Note Date of Service The patient was seen on 04/03/18. NOTE SBAR from Dr Cartagena at 730, RN check 2 hrs ago was ~7 Pain controlled with epidural NST Cat 1, reg ctx's Cx C/C/+2, start pushing in ~45 min to allow for some passive descent Sessions VS,Reji, I+O VS, Reji, I+O Laboratory Tests 04/03/18 02:33 Red Blood Count 3.87 L, Mean Corpuscular Volume 86.8, Mean Corpuscular Hemoglob in 27.9, Mean Corpuscular Hemoglobin Concent 32.1, Red Cell Distribution Width 15.1 H Vital Signs Date Time Temp Pulse Resp B/P (MAP) Pulse Ox O2 Delivery O2 Flow Rate FiO2 04/03/18 07:38 98.4 88 137/80 (99) 04/03/18 05:41 18 SESSIONS,PACHECO Briceño MD Apr 03, 2018 10:46
--- NOTE | 2018-04-03 12:03 | HPE ---
DATE OF ADMISSION: 04/03/2018 22-year-old 1, para 0, LMP 07/14/2017 EDC 03/29/2018 at 49 and 5 weeks of gestation with a history of active labor. 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 Labs are AB positive. HIV negative. Hep negative. RPR was reactive. TPI was negative. Rubella immune. Varicella immune. Urine negative. Gonorrhea and chlamydia negative. Group B Streptococcus (GBS) was negative. One hour glucose was not done. On examination she appears distressed. Symphysis fundus height is 40, vertex, OA, 100% effaced, -1 station, 6 cm, very soft. Membranes are intact. Blood pressure 122/72, respirations 18, pulse 78, temperature 98.3. Urine is 1.015, pH 5, negative, negative, negative. The rest the examination is unremarkable. She has category 1 strip. Normocephalic, atraumatic. Neck full range of motion. Pupils equal and reactive to light. Distal pulses symmetric. No evidence of deep vein thrombosis (DVT), pulmonary embolism (PE) or superficial phlebitis. No wheezes or rhonchi. No CVA tenderness. Abdomen soft. Uterus is appropriate. Four quadrant bowel sounds are noted. She has no rashes, lesions or pruritus. No arthralgia or myalgia. No complaint of joint pain. No complaint cough, wheeze, or shortness of breath or dyspnea on exertion. No bleeding. Neuro complete. No incontinence, urgency or frequency. No nausea, vomiting, diarrhea or constipation. She did not do her diabetic 28-week glucose screen. 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 Past medical, surgical, and family history is noncontributory. She does not smoke, drink or abuse drugs. . No domestic violence. In summary we have a post term gestation in active labor. Anticipate analgesics in the form of epidural. We discussed consent for vaginal deliveries, baby through the vagina with possible assistance of forceps or vacuum devices if needed for maternal or indications, forceps or vacuum devices that can assist with vaginal delivery when normal pushing efforts cannot achieve delivery on their own or when delivery is needed in an emergency for baby's well-being. Medications may be required to induce or augment labor in order to achieve a vaginal delivery. An episiotomy may be required to help the baby through delivery vaginally. You may also require repair of any lacerations or tears to the vagina and vulva that are caused by delivery. In some cases, emergencies can occur that require an emergency section delivery so quickly there may not be enough time to stop and complete consent forms for section, understand that this occurs provider will discuss the need for section, before proceeding with surgery. section is delivery of baby through an incision in your abdomen and some situations may be safer to the mother and the baby than continuing labor and only performed when clinically indicated. Risk of vaginal delivery include but not limited to bleeding, infection, injury to the vagina, pelvic structures, injury to baby, damage to the uterus, reactions to anesthesia, uterine rupture, risk of hysterectomy or for life-threatening bleeding or . Medications may be used to induce or augment labor, may increase her risk of infection, uterine tachysystole, uterine rupture, heart rate abnormalities, need for emergency section for delivery or possibly increased risk of perineal and vaginal lacerations, risk of urinary and bowel incontinence, increased risk of injury to baby with bruising, scratches, hematomas on the head or intracranial bleed. Patient is requesting epidural, however we will wait a little bit longer and reassess in 1 hour. All questions were answered.
[2018-04-03] MEDS ORDERED: RHOGAM 300 MCG (1500 IU) INJ (J2790) IM SCH (13:30)
[2018-04-03] MEDS ORDERED: DIBUCAINE 1% OINTMENT 30GM TOP PRN (13:30)
[2018-04-03] MEDS ORDERED: METOCLOPRAMIDE INJ 10MG/2ML VIAL (J2765) IV PRN (13:30)
[2018-04-03] MEDS ORDERED: ACETAMINOPHEN TAB 650MG DOSE (2X325MG) PO PRN (13:30)
[2018-04-03] MEDS ORDERED: MEASLES,MUMPS,RUBELLA VACCINE INJ (MMR-II) (90707) SC SCH (13:30)
[2018-04-03] MEDS ORDERED: OXYTOCIN DRIP 30 UNITS in APPROPRIATE DILUENT 1 EA IV SCH (13:30)
[2018-04-03] MEDS: IBUPROFEN 800 MG TAB PO PRN (17:45)
[2018-04-03] MEDS: DOCUSATE SODIUM 100 MG CAP PO SCH (21:33)
[2018-04-04 06:06] VITALS: BP 118/55
--- NOTE | 2018-04-04 08:25 | IPNPDOC ---
Text Note Date of Service The patient was seen on 04/04/18. NOTE PPD1 States feeling well, pain controlled with prescribed meds. Baby bonding and feeding well. No heavy VB. Lochia slowing. Ambulating and voiding well. Tolerating PO without issues. VSSAF NAD A&O RRR CTAB LE no C/C/E Ut at U-2, firm a/p: Doing well. Cont routine care. D/C likely tomorrow. Sessions Reji AWAD, I+O VSReji I+O Vital Signs Date Time Temp Pulse Resp B/P (MAP) Pulse Ox O2 Delivery O2 Flow Rate FiO2 04/04/18 06:06 97.5 93 18 118/55 (76) 04/03/18 16:32 98 I&O- Last 24 Hours up to 6 AM 04/04/18 05:59 Intake Total 3953 ml Output Total 2400 ml Balance 1553 ml SESSIONS,PACHECO Briceño MD Apr 04, 2018 08:25
[2018-04-04] MEDS: DOCUSATE SODIUM 100 MG CAP PO SCH ×2 (08:30→21:32)
[2018-04-04] MEDS: PRENATAL VITAMINS CHEWABLE TABLET PO SCH (08:30)
[2018-04-04] MEDS: IBUPROFEN 800 MG TAB PO PRN (08:41)
[2018-04-04 18:32] VITALS: BP 132/76
[2018-04-04 18:33] VITALS: BP 103/50
[2018-04-05 06:02] VITALS: BP 126/71
--- NOTE | 2018-04-05 07:16 | DS.PDOC ---
Discharge Summary General Date of Admission Apr 03, 2018 at 02:48 Date of Discharge Apr 05, 2018 Discharge Summary HOSPITAL COURSE: Ms. Mayfield is a 23 yo G1 Now P1 who underwent an uncomplicated on 03Apr2018 after being admitted for active labor. Her course has been unremarkable. On her day of discharge she met all appropriate discharge criteria. She was ambulating, voiding, tolerating a regular diet, and her pain was well controlled with PO pain medication. Lochia has been minimal. DISCHARGE MEDICATIONS: Please see below. ALLERGIES: Please see below. PHYSICAL EXAMINATION ON DISCHARGE: VITAL SIGNS: Please see below. GENERAL: AAOX3, sitting up in bed, NAD ABDOMINAL EXAMINATION: Fundus firm at U-2. No fundal tenderness. EXTREMITIES: No edema PSYCHIATRIC EXAMINATION: Affect appropriate LABORATORY DATA: Please see below. ACTIVITY: Pelvic rest for 6 weeks. DIET: Regular DISCHARGE PLAN: DC home DISPOSITION: discharge home on 05Apr2018. DISCHARGE INSTRUCTIONS: 1. Pelvic rest for 6 weeks. ITEMS TO FOLLOWUP ON ON OUTPATIENT: 1. appointment in 6-8 weeks. DISCHARGE CONDITION: Stable. TIME SPENT ON DISCHARGE: Greater than 20 minutes. Kassie Preciado DO Vital Signs/I&Os Vital Signs Date Time Temp Pulse Resp B/P (MAP) Pulse Ox O2 Delivery O2 Flow Rate FiO2 04/05/18 06:02 98.8 74 16 126/71 (89) 04/04/18 18:33 97 Discharge Medications Scheduled (Right Step 27-0.8 mg) 1 Tab Tab, 1 TAB PO DAILY, (Reported) (Iron) 27 Mg Tab, 1 TAB PO DAILY, (Reported) Allergies Coded Allergies: No Known Allergies (Unverified , 04/03/18) KASSIE PRECIADO DO Apr 05, 2018 07:16
[2018-04-05] MEDS: DOCUSATE SODIUM 100 MG CAP PO SCH (08:07)
[2018-04-05] MEDS: PRENATAL VITAMINS CHEWABLE TABLET PO SCH (08:07)
[2018-04-05] MEDS ORDERED: COLA100C5 PO (11:26)
[2018-04-05] MEDS ORDERED: IBUP-1114 PO (11:26)
[2018-04-05] MEDS ORDERED: MAPA500T2 PO (11:26)
--- NOTE | 2018-04-10 17:03 | DNPDOC ---
[facility] Delivery Note Delivery Note Late entry, note didn't save on day of delivery DATE OF DELIVERY: 03APR2018 PREDELIVERY DIAGNOSIS: 40 5/7 weeks' gestation and labor. POST DELIVERY DIAGNOSIS: Delivered. PROCEDURE: Spontaneous vaginal delivery POLLUTION CONTROL CHEMIST: Dr. Adams Anesthesia: epidural FINDINGS: 9 pound 9 ounce male , Score 8/9 DELIVERY SUMMARY: Great effort, no signif delay of the vtx or ant/post shoulders. To abd in good shape. Cord C/C by FOB. Cord blood. Placenta intact, fundus firm, pit going 999. R side vag wall lac repaired with 3-0 vicryl. Good cosmesis/hemostasis. Uncomplicated. EBL average, see RN note. PACHECO Arias MD, MD Apr 10, 2018 17:03
--- NOTE | 2018-04-15 18:18 | IPN ---
DATE: 04/04/2018 This patient requested circumcision of her male . After discussing risks, benefits of circumcision, the medical and nonmedical indications, penile block and aftercare, expressed understanding of penile block, aftercare and bleeding, signed the consent form. All questions were answered. 20-minute discussion. We await the clearance by the trend investigator.
== END 2018-04-05 15:00 | disposition home or self-care (01) | DRG 807 ==
LOC: M LDO 01:10 → M LDI 02:48 → M OBS 16:19
PROVIDERS: ADMIT Obstetrics & Gynecology; ATTEND Obstetrics & Gynecology
PROC: 10E0XZZ Delivery of Products of Conception, External Approach (ICD-10-PCS; principal; 2018-04-03)
PROC: 0HQ9XZZ Repair Perineum Skin, External Approach (ICD-10-PCS; 2018-04-03)
DX: O48.0 Post-term pregnancy (principal); Z37.0 Single live birth; Z3A.40 40 weeks gestation of pregnancy; O70.0 First degree perineal laceration during delivery

== ENCOUNTER 2018-04-13 18:50 | Emergency (ER) | payer OTHER ==
[~2018-04-13] VITALS: Ht 177.8 cm; Wt 80.3 kg
[~2018-04-13 18:50] MED LIST changes: +COLA100C5 PO; +IBUP-1114 PO; +IRON27TA2 PO
[2018-04-13 19:56] LABS: BASO # 0.1 10^3/uL (0.0-0.2); BASO % 0.6 % (0.0-1.0); EOS # 0.1 10^3/uL (0.0-0.50); EOS % 1.5 % (0.0-3.0); HEMOGLOBIN 12.3 g/dl (12.0-15.5); LYMPH # 2.3 10^3/uL (1.5-6.5); LYMPH % 28.7 % (24.0-44.0); MEAN CORPUSCULAR HGB CONC 32.4 g/dl (32.0-36.5); MEAN CORPUSCULAR VOLUME 86.4 fl (80.0-96.0); MONO # 0.6 10^3/uL (0.0-0.8); MONO % 7.5 % (0.0-5.0); NEUTROPHILS % 61.3 % (36.0-66.0); PLATELET COUNT, AUTOMATED 315 10^3/uL (150-450); WHITE BLOOD COUNT 8.1 10^3/uL (4.0-10.0)
[2018-04-13] MEDS ORDERED: METOCLOPRAMIDE INJ 10MG/2ML VIAL (J2765) IV ONE (20:00)
[2018-04-13] MEDS ORDERED: diphenhydrAMINE INJ 50MG/ML VIAL (J1200) IV ONE (20:00)
[2018-04-13] MEDS ORDERED: NS 1,000 ML IV ONE (20:00)
[2018-04-13] MEDS ORDERED: KETOROLAC 30 MG/ML VIAL (J1885) IV ONE (20:00)
[2018-04-13 20:08] LABS: ALBUMIN 3.3 GM/DL (3.2-5.2); ALT/SGPT 24 U/L (12-78); BILIRUBIN,DIRECT 0.1 MG/DL (0.0-0.2); BILIRUBIN,TOTAL 0.5 MG/DL (0.2-1.0); BLOOD UREA NITROGEN 16 MG/DL (7-18); CALCIUM LEVEL 8.6 MG/DL (8.5-10.1); CARBON DIOXIDE LEVEL 24 MEQ/L (21-32); CHLORIDE LEVEL 110 MEQ/L (98-107); CREATININE FOR GFR 1.18 MG/DL (0.55-1.30); GLOMERULAR FILTRATION RATE > 60.0 (>60); GLUCOSE, FASTING 111 MG/DL (70-100); SODIUM LEVEL 142 MEQ/L (136-145); TOTAL PROTEIN 6.8 GM/DL (6.4-8.2); URIC ACID 6.1 MG/DL (2.6-6.0)
[2018-04-13 22:56] VITALS: BP 109/65
--- NOTE | 2018-04-14 20:53 | ECGEPIP ---
Stationary ECG Study 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
== END 2018-04-13 23:11 | disposition home or self-care (01) ==
LOC: M ED 18:50
DX: G43.909 Migraine, unspecified, not intractable, without status migrainosus (principal); Z79.899 Other long term (current) drug therapy
CPT/HCPCS: 80048; 80076; 81001; 83735; 84550; 85025; 87086; 93005; 93041; 96374; 96375; 99284; J1200; J1885; J2765

== ENCOUNTER 2018-07-03 13:49 | Emergency (ER) | payer OTHER ==
[~2018-07-03] VITALS: Ht 175.3 cm; Wt 74.3 kg
[2018-07-03] MEDS ORDERED: ACETAMINOPHEN TAB 650MG DOSE (2X325MG) PO ONE (15:45)
[2018-07-03 15:51] LABS: BASO % 0.4 % (0.0-1.0); EOS # 0.1 10^3/uL (0.0-0.50); EOS % 1.2 % (0.0-3.0); HEMATOCRIT 38.4 % (36.0-47.0); HEMOGLOBIN 12.9 g/dl (12.0-15.5); LYMPH # 1.7 10^3/uL (1.5-6.5); LYMPH % 23.7 % (24.0-44.0); MEAN CORPUSCULAR HEMOGLOBIN 28.5 pg (27.0-33.0); MEAN CORPUSCULAR HGB CONC 33.6 g/dl (32.0-36.5); MEAN CORPUSCULAR VOLUME 84.8 fl (80.0-96.0); MONO # 0.4 10^3/uL (0.0-0.8); MONO % 5.5 % (0.0-5.0); NEUTROPHILS % 69.1 % (36.0-66.0); PLATELET COUNT, AUTOMATED 228 10^3/uL (150-450); RED BLOOD COUNT 4.53 10^6/uL (4.00-5.40); WHITE BLOOD COUNT 7.3 10^3/uL (4.0-10.0)
[2018-07-03 16:12] LABS: BLOOD UREA NITROGEN 15 MG/DL (7-18); CALCIUM LEVEL 8.9 MG/DL (8.5-10.1); CARBON DIOXIDE LEVEL 30 MEQ/L (21-32); CHLORIDE LEVEL 108 MEQ/L (98-107); CK-MB VALUE MASS < 1.0 NG/ML (<3.6); CPK CREATINE PHOSPHOKINASE 60 U/L (26-192); CREATININE FOR GFR 0.92 MG/DL (0.55-1.30); GLOMERULAR FILTRATION RATE > 60.0 (>60); GLUCOSE, FASTING 93 MG/DL (70-100); MB/CK RELATIVE INDEX 1.67 (< OR =4); POTASSIUM SERUM 4.1 MEQ/L (3.5-5.1); SODIUM LEVEL 142 MEQ/L (136-145); TROPONIN I < 0.02 NG/ML (< 0.10)
[2018-07-03] MEDS ORDERED: ISOVUE-370 76% 100ML VIAL (Q9967) As Ordered ONE (16:14)
--- NOTE | 2018-07-03 17:10 | REP ---
CT ANGIOGRAM CHEST: TECHNIQUE: Axial contrast enhanced images from the thoracic inlet to the upper abdomen using 100 mL Isovue 370 intravenous contrast material with multiplanar reformations. The study is limited due to patient motion. No central pulmonary embolism is seen. There is no evidence of thoracic aortic aneurysm or dissection. There is mild residual thymic tissue in the anterior mediastinum. There is no evidence of mediastinal, hilar or chest wall lymphadenopathy. There is no pleural or pericardial effusion. The heart is normal in size. The lungs show no infiltrate. IMPRESSION: Limited by motion. No definite pulmonary embolism centrally. No evidence of aortic dissection. The lungs are clear. Electronically Signed by Jass Cope MD 07/03/2018 06:49 P
[2018-07-03] MEDS ORDERED: VIST25CA PO (17:49)
[2018-07-03 18:00] VITALS: BP 110/55
--- NOTE | 2018-07-04 07:32 | ECGEPIP ---
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
== END 2018-07-03 18:05 | disposition home or self-care (01) ==
LOC: M ED 13:49
DX: R00.2 Palpitations (principal); R07.9 Chest pain, unspecified
CPT/HCPCS: 36415; 71275; 80048; 82550; 82553; 84443; 84484; 85025; 93005; 93041; 94760; 99285; Q9967

== ENCOUNTER 2019-01-27 10:40 | Emergency (ER) | payer OTHER ==
[~2019-01-27] VITALS: Ht 175.3 cm; Wt 68.2 kg
[~2019-01-27 10:40] MED LIST changes: -OMEP40CA2 PO; +OMEP40CA97 PO; +VIST25CA PO
[2019-01-27] MEDS ORDERED: SUMA100T2 (10:48)
[2019-01-27 11:54] LABS: BASO % 0.5 % (0.0-1.0); EOS % 0.2 % (0.0-3.0); HEMATOCRIT 38.8 % (36.0-47.0); HEMOGLOBIN 12.8 g/dl (12.0-15.5); LYMPH # 1.1 10^3/uL (1.5-5.0); LYMPH % 20.1 % (24.0-44.0); MEAN CORPUSCULAR HEMOGLOBIN 29.8 pg (27.0-33.0); MEAN CORPUSCULAR VOLUME 90.2 fl (80.0-96.0); MONO # 0.3 10^3/uL (0.0-0.8); MONO % 5.6 % (0.0-5.0); NEUTROPHILS % 73.4 % (36.0-66.0); PLATELET COUNT, AUTOMATED 218 10^3/uL (150-450); WHITE BLOOD COUNT 5.5 10^3/uL (4.0-10.0)
[2019-01-27 12:16] LABS: HCG, SERUM QUALITATIVE NEGATIVE (NEGATIVE)
[2019-01-27 12:21] LABS: ALBUMIN 3.6 GM/DL (3.2-5.2); ALT/SGPT 14 U/L (12-78); BILIRUBIN,DIRECT 0.2 MG/DL (0.0-0.2); BLOOD UREA NITROGEN 12 MG/DL (7-18); CALCIUM LEVEL 9.1 MG/DL (8.5-10.1); CARBON DIOXIDE LEVEL 27 MEQ/L (21-32); CHLORIDE LEVEL 110 MEQ/L (98-107); CK-MB VALUE MASS < 1.0 NG/ML (<3.6); CPK CREATINE PHOSPHOKINASE 72 U/L (26-192); CREATININE FOR GFR 0.84 MG/DL (0.55-1.30); GLOMERULAR FILTRATION RATE > 60.0 (>60); GLUCOSE, FASTING 72 MG/DL (70-100); LIPASE 90 U/L (73-393); MB/CK RELATIVE INDEX 1.39 (< OR =4); NT-PRO BNP 15 PG/ML (<125); POTASSIUM SERUM 3.9 MEQ/L (3.5-5.1); SODIUM LEVEL 144 MEQ/L (136-145); THYROID STIMULATING HORMONE 0.368 uIU/ML (0.358-3.740); TOTAL PROTEIN 7.4 GM/DL (6.4-8.2); TROPONIN I < 0.02 NG/ML (< 0.10)
--- NOTE | 2019-01-27 12:37 | REP ---
Clinical: Chest pain . Comparison: None . Technique: PA and lateral. Findings: The mediastinum and cardiac silhouette are normal. The lung mendoza are clear and without acute consolidation, effusion, or pneumothorax. The skeletal structures are intact and normal. Impression: 1. No acute cardiopulmonary process. Electronically Signed by Fish Dean MD 01/27/2019 12:28 P
[2019-01-27] MEDS ORDERED: NS 1,000 ML IV ONE (13:00)
[2019-01-27 14:04] VITALS: BP 101/52
--- NOTE | 2019-01-27 14:22 | REP ---
CT brain: New 01/27/2019. New indication: Dizziness. Comparison: None. Technique: Unenhanced axial CT images of the brain were obtained from skull base to vertex. Findings: There is no acute intracranial hemorrhage, acute cortical infarction, mass effect, hydrocephalus or significant fluid within the visualized paranasal sinuses/mastoid air cells. Impression: No acute intracranial process. Electronically Signed by Bud Olvera DO 01/27/2019 02:13 P
--- NOTE | 2019-01-27 17:14 | ECGEPIP ---
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
== END 2019-01-27 15:33 | disposition home or self-care (01) ==
LOC: M ED 10:40
DX: F43.0 Acute stress reaction (principal); R07.89 Other chest pain; R53.81 Other malaise; R53.83 Other fatigue; Z87.59 Personal history of other complications of pregnancy, childbirth and the puerperium; G43.909 Migraine, unspecified, not intractable, without status migrainosus; Z79.899 Other long term (current) drug therapy

== ENCOUNTER 2019-09-07 11:25 | Emergency (ER) | payer OTHER ==
[~2019-09-07] VITALS: Ht 175.3 cm; Wt 71.6 kg
[~2019-09-07 11:25] MED LIST changes: +SUMA100T2
[2019-09-07] MEDS ORDERED: KETOROLAC 60MG 2ML VIAL IM ONE (12:45)
[2019-09-07] MEDS ORDERED: CYCL5TAB PO (13:20)
[2019-09-07] MEDS ORDERED: KETO10TAB PO (13:20)
[2019-09-07 13:29] VITALS: BP 121/58
== END 2019-09-07 13:30 | disposition home or self-care (01) ==
LOC: M ED 11:25
DX: M53.3 Sacrococcygeal disorders, not elsewhere classified (principal); M54.9 Dorsalgia, unspecified; F41.9 Anxiety disorder, unspecified
CPT/HCPCS: 96372; 99283; J1885